=== PATIENT | female | born 1955 ===

== ENCOUNTER 2018-08-16 13:36 | Day surgery (SDC) | payer OTHER ==
[~2018-08-16] VITALS: Ht 170.2 cm; Wt 104.4 kg
[2018-08-16] MEDS ORDERED: ALPR1 (14:13)
[2018-08-16] MEDS ORDERED: FLONASE ALLERG9.9 ML (14:14)
[2018-08-16] MEDS ORDERED: ESOM20 (14:14)
[2018-08-16] MEDS ORDERED: ALLEGRA ALLERG180 MG (14:14)
[2018-08-16] MEDS ORDERED: Estradiol0.5 MG (14:14)
[2018-08-16] MEDS ORDERED: BENADRYL25 MG (14:14)
[2018-08-16] MEDS ORDERED: METO25ER (14:15)
[2018-08-16] MEDS ORDERED: OLOP.1OPSO (14:15)
[2018-08-16] MEDS ORDERED: Prinivil10 MG (14:15)
[2018-08-16] MEDS ORDERED: EC-Naprosyn375 MG (14:15)
== END 2018-08-16 14:59 | disposition home or self-care (01) ==
LOC: ORSCSDS 13:36
PROVIDERS: Anesthesiology
PROC: 3E0233Z Introduction of Anti-inflammatory into Muscle, Percutaneous Approach (ICD-10-PCS; principal; 2018-08-16 14:45)
DX: M54.5 Low back pain (principal); M54.16 Radiculopathy, lumbar region; I10 Essential (primary) hypertension; Z79.899 Other long term (current) drug therapy